=== PATIENT | female | born 1985 | race Caucasian/White ===

== ENCOUNTER 2018-08-12 16:22 | Emergency (ER) | payer OTHER, SELFPAY ==
--- OUTSIDE RECORDS SUMMARY | 2018-08-12 16:24 | XMS REPORT ---
:1985 Author Organization eClinicalWorks Care Team Providers Name Role Phone Power Lewis Provider Role Unavailable Allergies No Known Allergies Problems Problem Type Condition Code Onset Dates Condition Status Problem Obesity affecting in O99.211 Active first trimester Medications Medication Code System Code Instructions Start Date End Date Status Dosage Flagyl [facility] 11832702056 500 MG Orally Aug 04, Active 1 tablet twice a day 2017 Results No Known Results Summary Purpose eClinicalWorks Submission
--- OUTSIDE RECORDS SUMMARY | 2018-08-12 16:25 | XMS REPORT ---
:1985 Author Organization eClinicalWorks Care Team Providers Name Role Phone Power Lewis Provider Role Unavailable Allergies No Known Allergies Problems Problem Type Condition Code Onset Dates Condition Status Problem Obesity affecting in O99.211 Active first trimester Medications No Known Medications Results No Known Results Summary Purpose eClinicalWorks Submission
[2018-08-12 17:04] LABS: Urine Blood NEGATIVE (NEG); Urine Glucose NEGATIVE (NEG); Urine Protein TRACE (NEG); Urine Specific Gravity 1.025 (1.005-1.030); Urine pH 5.5 (5.0-7.0)
[2018-08-12 17:10] LABS: Absolute Lymphocytes (CBC) 1.9 K/uL (0.7-4.9); Absolute Monocytes 0.7 K/uL (0.1-1.3); Absolute Neutrophil 5.9 K/uL (1.8-8.0); Basophils % 0.3 % (0-1.3); Eosinophils % 0.5 % (0-4.4); Hematocrit 38.1 % (36.0-45.0); Lymphocytes % 22.3 % (15.3-44.8); MCH 30.5 pg (27.0-35.0); MCV 89.8 fL (80-100); MPV 9.1 fL (7.6-11.3); Monocytes % 8.2 % (3.3-12.3); RBC Red Blood Cell Count 4.25 M/uL (3.86-4.86)
[2018-08-12 17:36] LABS: BUN Blood Urea Nitrogen 10 mg/dL (7-18); Bicarbonate 24 mmol/L (21-32); Glucose Level 80 mg/dL (74-106); Potassium 3.5 mmol/L (3.5-5.1); Sodium Level 136 mmol/L (136-145)
[2018-08-12 17:48] LABS: HCG, Quantitative 44821 mIU/mL (1-3)
--- NOTE | 2018-08-12 18:33 | RAD REPORT ---
EXAM DESCRIPTION: US - 1St Trimest Single 1St Fetus - 08/12/2018 6:20 pm CLINICAL HISTORY: with abdominal pain COMPARISON: None FINDINGS: Single live intrauterine is in transverse presentation. [place]-rump length 7.5 centimeters. Cardiac activity 160 beats per minute. 3 centimeter isoechoic structure anteriorly could either represent a fibroid or myometrial contractio n. The placenta is anterior Cervix measures 3.3 centimeters Evaluation of the right and left adnexae is unremarkable IMPRESSION: Single live intrauterine with an estimated gestational age 13 weeks 4 days FRANCISCO 02/13/2019 3 centimeter isoechoic structure anteriorly could either represent a fibroid or myometrial contractio n If a survey is desired it should be performed in approximately 4-1/2 weeks
--- NOTE | 2018-08-12 18:40 | ER ---
Nurse's Notes [facility] Name: Fanny Morrison Age: 33 yrs Sex: Female : 1985 Arrival Date: 08/12/2018 Time: 16:27 Bed 19 Private MD: Diagnosis: 13 weeks gestation of ;Lower abdominal pain, unspecified Presentation: 08/12 16:43 Presenting complaint: Patient states: lower abd pain x 1 week that is worse when ss turning onto left side. Patient reports she is 14 weeks . Transition of care: patient was not received from another setting of care. Onset of symptoms was August 05, 2018. Risk Assessment: Do you want to hurt yourself or someone else? Patient reports no desire to harm self or others. Initial Sepsis Screen: Does the patient meet any 2 criteria? No. Patient's initial sepsis screen is negative. Does the patient have a suspected source of infection? No. Patient's initial sepsis screen is negative. Care prior to arrival: None. 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 - Social history:: Smoking status: Patient/guardian denies using tobacco. - Ebola Screening: : Patient denies exposure to infectious person Patient denies travel to an Ebola-affected area in the 21 days before illness onset. Screenin:55 Abuse screen: Denies threats or abuse. Denies injuries from another. Nutritional jl7 screening: No deficits noted. Tuberculosis screening: No symptoms or risk factors identified. Fall Risk IV access (20 points). Total Sanchez Fall Scale indicates No Risk (0-24 pts). Assessment: 16:45 General: Appears in no apparent distress. uncomfortable, Behavior is calm, cooperative, jl7 appropriate for age. Pain: Complains of pain in right lower quadrant Pain does not radiate. Pain currently is 8 out of 10 on a pain scale. Quality of pain is described as pressure, Pain began 1 week ago Is continuous. Neuro: Level of Consciousness is awake, alert, obeys commands, Oriented to person, place, time, situation. Cardiovascular: Patient's skin is warm and dry. Respiratory: Airway is patent Respiratory effort is even, unlabored, Respiratory pattern is regular, symmetrical. GI: Bowel sounds present X 4 quads. Abd is soft X 4 quads Abdomen is tender to palpation in right lower quadrant. : No signs and/or symptoms were reported regarding the genitourinary system. EENT: No signs and/or symptoms were reported regarding the EENT system. Derm: Skin is pink, warm \T\ dry. Musculoskeletal: No signs and/or symptoms reported regarding the musculoskeletal system. 17:45 Reassessment: No changes from previously documented assessment. Patient and/or family jl7 updated on plan of care and expected duration. Pain level reassessed. Patient is alert, oriented x 3, equal unlabored respirations, skin warm/dry/pink. Vital Signs: 16:44 BP 116 / 67; Pulse 83; Resp 16; Temp 98.2(TE); Pulse Ox 100% on R/A; Weight 86.18 kg; ss Height 5 ft. 3 in. (160.02 cm); Pain 8/10; 17:05 BP 103 / 56; Pulse 76; Resp 15 S; Pulse Ox 100% on R/A; jl7 18:09 BP 96 / 66; Pulse 79; Resp 16 S; Pulse Ox 100% on R/A; jl7 16:44 Body Mass Index 33.66 (86.18 kg, 160.02 cm) ss Vitals: 16:55 Heart Tones 160 bpm. jl7 ED Course: 16:27 Patient arrived in ED. mr 16:33 Pedro Luis Swan RN is Primary Nurse. jl7 16:37 Barbara Schmitt FNP-C is PHCP. kb 16:37 Estuardo Mott MD is Attending Physician. kb 16:43 Triage completed. ss 16:44 Arm band placed on right wrist. ss 16:55 Patient has correct armband on for positive identification. Placed in gown. Bed in low jl7 position. Call light in reach. Side rails up X 1. Pulse ox on. NIBP on. Warm blanket given. 17:00 Initial lab(s) drawn, by me, sent to lab. Inserted saline lock: 22 gauge in right jl7 forearm, using aseptic technique. Blood collected. 18:20 1St Trimest Single 1St Fetus In Process Unspecified. EDMS 18:46 No provider procedures requiring assistance completed. IV discontinued, intact, jl7 bleeding controlled, No redness/swelling at site. Pressure dressing applied. Administered Medications: No medications were administered Outcome: 18:40 Discharge ordered by . malou 18:46 Discharged to home ambulatory, with family. jl7 18:46 Condition: stable 18:46 Discharge instructions given to patient, family, Instructed on discharge instructions, follow up and referral plans. Demonstrated understanding of instructions, follow-up care. 18:47 Patient left the ED. jl7 Signatures: Dispatcher [employer] EDNE Barbara Schmitt, EAP CONSULTANTMajoC EAP CONSULTANT-Ailyn Messer mr Milana Forman, RN RN Pedro Luis Swan RN RN jl7 Corrections: (The following items were deleted from the chart) 17:06 17:05 BP 103 / 56; Pulse 16bpm; Resp 15bpm; Spontaneous; Pulse Ox 100% RA; jl7 jl7
--- NOTE | 2018-08-12 18:40 | EDPHYS ---
Physician Documentation [facility] Name: Fanny Morrison Age: 33 yrs Sex: Female : 1985 Arrival Date: 08/12/2018 Time: 16:27 Bed 19 Private MD: ED Physician Estuardo Mott HPI: 08/12 17:00 This 33 yrs old Female presents to ER via Ambulatory with complaints of 14 kb wks , Abdominal Cramping. 17:00 The patient presents to the emergency department with abdominal pain, of the right kb lower quadrant, that started 7 day(s) ago, described as waxing/waning. The estimated gestational age is 14 weeks. course: care: private OB physician, Dr. Lewis, Leakage of Fluid: none appreciated, Ultrasound: the patient had an ultrasound, which was normal, Risk/complications: no obvious risks or complications are appreciated. Associated signs and symptoms: Pertinent positives: abdominal pain, nausea, vomiting, Pertinent negatives: chest pain, diarrhea, dysuria, fever, frequency, ruptured membranes, seizure, shortness of breath, vaginal bleeding, vaginal discharge. The patient has not experienced similar symptoms in the past. The patient has not recently seen a physician. 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 - Social history:: Smoking status: Patient/guardian denies using tobacco. - Ebola Screening: : Patient denies exposure to infectious person Patient denies travel to an Ebola-affected area in the 21 days before illness onset. ROS: 16:59 Constitutional: Negative for fever, chills, and weight loss, Cardiovascular: Negative kb for chest pain, palpitations, and edema, Respiratory: Negative for shortness of breath, cough, wheezing, and pleuritic chest pain, Back: Negative for injury and pain, : Negative for injury, bleeding, discharge, and swelling, MS/Extremity: Negative for injury and deformity, Skin: Negative for injury, rash, and discoloration, Neuro: Negative for headache, weakness, numbness, tingling, and seizure. 16:59 Abdomen/GI: Positive for abdominal pain, Negative for nausea, vomiting, and diarrhea, constipation, abdominal cramps, abdominal distension, anorexia. Exam: 16:59 Constitutional: This is a well developed, well nourished patient who is awake, alert, kb and in no acute distress. Head/Face: Normocephalic, atraumatic. Chest/axilla: Normal chest wall appearance and motion. Nontender with no deformity. No lesions are appreciated. Cardiovascular: Regular rate and rhythm with a normal S1 and S2. No gallops, murmurs, or rubs. Normal PMI, no JVD. No pulse deficits. Respiratory: Lungs have equal breath sounds bilaterally, clear to auscultation and percussion. No rales, rhonchi or wheezes noted. No increased work of breathing, no retractions or nasal flaring. Back: No spinal tenderness. No costovertebral tenderness. Full range of motion. Skin: Warm, dry with normal turgor. Normal color with no rashes, no lesions, and no evidence of cellulitis. MS/ Extremity: Pulses equal, no cyanosis. Neurovascular intact. Full, normal range of motion. Neuro: Awake and alert, GCS 15, oriented to person, place, time, and situation. Cranial nerves II-XII grossly intact. Motor strength 5/5 in all extremities. Sensory grossly intact. Cerebellar exam normal. Normal gait. 16:59 Abdomen/GI: Inspection: abdomen appears normal, Bowel sounds: normal, in all quadrants, Palpation: soft, in all quadrants, moderate abdominal tenderness, in the right lower quadrant, Indicators: McBurney's point is tender, Rovsing's sign is positive. Vital Signs: 16:44 BP 116 / 67; Pulse 83; Resp 16; Temp 98.2(TE); Pulse Ox 100% on R/A; Weight 86.18 kg; ss Height 5 ft. 3 in. (160.02 cm); Pain 8/10; 17:05 BP 103 / 56; Pulse 76; Resp 15 S; Pulse Ox 100% on R/A; jl7 18:09 BP 96 / 66; Pulse 79; Resp 16 S; Pulse Ox 100% on R/A; jl7 16:44 Body Mass Index 33.66 (86.18 kg, 160.02 cm) MDM: 16:37 Patient medically screened. [facility] 16:59 Data reviewed: vital signs, nurses notes. Data interpreted: Pulse oximetry: on room air kb is 100 %. Interpretation: normal. 18:39 Counseling: I had a detailed discussion with the patient and/or guardian regarding: the kb historical points, exam findings, and any diagnostic results supporting the discharge/admit diagnosis, lab results, radiology results, the need for outpatient follow up, an OB/Gyne specialist, to return to the emergency department if symptoms worsen or persist or if there are any questions or concerns that arise at home. 18:40 ED course: Normal WBC, no fever, pain ongoing for a week. Appendicitis unlikely kb diagnosis. Pt educated to return for fever, worsening symptoms or other concerns.. 10 16:38 Order name: Quantitative Hcg; Complete Time: 17:48 kb 08/12 16:38 Order name: Abo/rh Typing; Complete Time: 17:36 kb 08/12 16:38 Order name: Basic Metabolic Panel; Complete Time: 17:48 kb 08/12 16:38 Order name: CBC with Diff; Complete Time: 17:21 kb 08/12 16:58 Order name: Urine Dipstick--Ancillary (enter results); Complete Time: 17:07 bd 08/12 16:58 Order name: Urine --Ancillary (enter results); Complete Time: 17:07 bd 08/12 16:38 Order name: Urine Test (obtain specimen); Complete Time: 17:06 kb 08/12 16:38 Order name: IV Saline Lock; Complete Time: 17:06 kb 08/12 16:38 Order name: Labs collected and sent; Complete Time: 17:06 kb 08/12 16:38 Order name: NPO; Complete Time: 17:06 kb 08/12 16:38 Order name: Urine Dipstick-Ancillary (obtain specimen); Complete Time: 17:06 kb 08/12 17:58 Order name: ABO/RH no charge; Complete Time: 18:04 EDMS 08/12 18:19 Order name: 1St Trimest Single 1St Fetus; Complete Time: 18:34 EDMS Administered Medications: No medications were administered Disposition: 08/13 07:12 Co-signature as Attending Physician, Estuardo Mott MD I agree with the assessment and dayron plan of care. Disposition: 08/12/18 18:40 Discharged to Home. Impression: 13 weeks gestation of , Lower abdominal pain, unspecified. - Condition is Stable. - Discharge Instructions: Second Trimester of , [id number]. - Medication Reconciliation Form, Thank You Letter, Antibiotic Education, Prescription Opioid Use form. - Follow up: Emergency Department; When: As needed; Reason: Worsening of condition. Follow up: Private Physician; When: 2 - 3 days; Reason: Recheck today's complaints, Continuance of care, Re-evaluation by your physician. Signatures: Dispatcher [employer] [facility] Barbara Schmitt, RETAIL SERVICE REPRESENTATIVE-C RETAIL SERVICE REPRESENTATIVE-Estuardo Garcia MD MD cha Smirch, Shelby, RN RN ss Pedro Luis Swan RN RN jl7 Corrections: (The following items were deleted from the chart) 08/12 18:19 17:49 Transvaginal Ob+US.RAD.BRZ ordered. [facility] 18:47 18:40 08/12/2018 18:40 Discharged to Home. Impression: 13 weeks gestation of ; jl7 Lower abdominal pain, unspecified. Condition is Stable. Forms are Medication Reconciliation Form, Thank You Letter, Antibiotic Education, Prescription Opioid Use. Follow up: Emergency Department; When: As needed; Reason: Worsening of condition. Follow up: Private Physician; When: 2 - 3 days; Reason: Recheck today's complaints, Continuance of care, Re-evaluation by your physician. kb
== END 2018-08-12 18:47 | disposition home or self-care (01) ==
LOC: ER 16:22
DX: O26.891 Other specified pregnancy related conditions, first trimester (principal); Z3A.13 13 weeks gestation of pregnancy
CPT/HCPCS: 36415; 76801; 80048; 81003; 81025; 84702; 85025; 86900; 86901; 99284

== ENCOUNTER 2019-02-08 11:30 | Inpatient (IN) | payer OTHER ==
[2019-02-08 11:09] LABS: Urine Appearance CLOUDY; Urine Bilirubin NEGATIVE (NEG); Urine Blood NEGATIVE (NEG); Urine Color YELLOW; Urine Glucose NEGATIVE (NEG); Urine Protein TRACE (NEG); Urine Specific Gravity >=1.030 (1.005-1.030); Urine Urobilinogen 0.2 mg/dL (0.2-1.0)
[2019-02-08 11:12] LABS: RPR Titer ND
[2019-02-08 11:23] LABS: Absolute Lymphocytes (CBC) 2.2 K/uL (0.7-4.9); Absolute Monocytes 0.6 K/uL (0.1-1.3); Absolute Neutrophil 5.7 K/uL (1.8-8.0); Basophils % 0.1 % (0-1.3); Eosinophils % 0.4 % (0-4.4); Hematocrit 33.4 % (36.0-45.0); Lymphocytes % 25.9 % (15.3-44.8); MPV 9.3 fL (7.6-11.3); Monocytes % 7.1 % (3.3-12.3)
[2019-02-08 11:23] LABS: Urine Bacteria >50 /HPF (<20); Urine Culture Reflex Order NOT NEEDED; Urine Mucus HEAVY /HPF (NONE SEEN)
[2019-02-08 11:35] LABS: BUN Blood Urea Nitrogen 12 mg/dL (7-18); Bicarbonate 22 mmol/L (21-32); Glucose Level 108 mg/dL (74-106); Potassium 3.6 mmol/L (3.5-5.1); Sodium Level 138 mmol/L (136-145)
[2019-02-08 21:22] LABS: RPR (Rapid Plasma Reagin) NON-REACT (NON-REACT)
--- OUTSIDE RECORDS SUMMARY | 2019-02-09 09:51 | XMS REPORT ---
:1985 Author Organization eClinicalWorks Care Team Providers Name Role Phone Power Lewis Provider Role Unavailable Allergies No Known Allergies Problems Problem Type Condition Code Onset Dates Condition Status Problem Obesity affecting in O99.211 Active first trimester Medications Medication Code System Code Instructions Start Date End Date Status Dosage Flagyl [facility] 63236328144 500 MG Orally Aug 04, Active 1 tablet twice a day 2017 Results No Known Results Summary Purpose eClinicalWorks Submission
--- OUTSIDE RECORDS SUMMARY | 2019-02-09 09:52 | XMS REPORT ---
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
--- OUTSIDE RECORDS SUMMARY | 2019-02-09 09:52 | XMS REPORT ---
:1985 Author Organization eClinicalWorks Care Team Providers Name Role Phone Power Lewis Provider Role Unavailable Allergies No Known Allergies Problems Problem Type Condition Code Onset Dates Condition Status Assessment Obesity affecting in O99.212 Active second trimester Problem Supervision of high risk O09.92 Active in second trimester Problem Obesity affecting in O99.212 Active second trimester Problem Needs flu shot Z23 Active Assessment Supervision of high risk O09.92 Active in second trimester Problem Uterine scar from previous O34.219 Active delivery Problem Obesity affecting in O99.211 Active first trimester Medications Medication Code System Code Instructions Start End Date Status Dosage Date Macrobid [facility] 93542944023 100 MG Orally Active 1 capsule every 12 hrs with food Results No Known Results Summary Purpose eClinicalWorks Submission
--- OUTSIDE RECORDS SUMMARY | 2019-02-09 09:52 | XMS REPORT ---
:1985 Author Organization eClinicalWorks Care Team Providers Name Role Phone Power Lewis Provider Role Unavailable Allergies No Known Allergies Problems Problem Type Condition Code Onset Dates Condition Status Problem Uterine scar from previous O34.219 Active delivery Problem Needs flu shot Z23 Active Problem Supervision of high risk O09.93 Active in third trimester Problem Obesity affecting in O99.211 Active first trimester Problem Supervision of high risk O09.92 Active in second trimester Problem Obesity affecting in O99.212 Active second trimester Medications No Known Medications Results No Known Results Summary Purpose eClinicalWorks Submission
--- OUTSIDE RECORDS SUMMARY | 2019-02-09 09:52 | XMS REPORT ---
[...] Start End Date Status Dosage System Date Breast Pump [facility] 60787191532 - Jan 06, Active as directed 2018 Macrobid [facility] 68775508140 100 MG Orally Active 1 capsule every 12 hrs with food Results No Known Results Summary Purpose eClinicalWorks Submission
--- OUTSIDE RECORDS SUMMARY | 2019-02-09 09:52 | XMS REPORT ---
:1985 Author Organization eClinicalWorks Care Team Providers Name Role Phone Power Lewis Provider Role Unavailable Allergies No Known Allergies Problems Problem Type Condition Code Onset Dates Condition Status Assessment Supervision of high risk O09.92 Active in second trimester Assessment Obesity affecting in O99.212 Active second trimester Problem Supervision of high risk O09.92 Active in second trimester Problem Obesity affecting in O99.212 Active second trimester Problem Needs flu shot Z23 Active Assessment Urinary tract infection in mother O23.43 Active during third trimester of Problem Uterine scar from previous O34.219 Active delivery Problem Obesity affecting in O99.211 Active first trimester Medications Medication Code Code Instructions Start End Status Dosage System Date Date Macrobid [facility] 76825368347 100 MG Orally Active 1 capsule every 12 hrs with food Flagyl [facility] 22700459193 500 MG Orally Sept 25, Active 1 tablet twice a day 2017 Progesterone [facility] 88551345050 50 MG/ML Active as directed Intramuscular Results Name Result Date Reference Range Unit Abnormality Flag CULTURE, URINE, ROUTINE ----CULTURE, URINE, ROUTINE SEE NOTE [id number] Summary Purpose eClinicalWorks Submission
--- OUTSIDE RECORDS SUMMARY | 2019-02-09 09:52 | XMS REPORT ---
[...] Start End Date Status Dosage Date Macrobid [facility] 92655636173 100 MG Orally Active 1 capsule every 12 hrs with food Results No Known Results Summary Purpose eClinicalWorks Submission
--- OUTSIDE RECORDS SUMMARY | 2019-02-09 09:52 | XMS REPORT ---
:1985 Author Organization eClinicalWorks Care Team Providers Name Role Phone Power Lewis Provider Role Unavailable Allergies No Known Allergies Problems Problem Type Condition Code Onset Dates Condition Status Assessment Supervision of high risk O09.93 Active in third trimester Problem Uterine scar from previous O34.219 Active delivery Problem Needs flu shot Z23 Active Problem Supervision of high risk O09.93 Active in third trimester Problem Obesity affecting in O99.211 Active first trimester Problem Supervision of high risk O09.92 Active in second trimester Problem Obesity affecting in O99.212 Active second trimester Medications Medication Code Code Instructions Start End Date Status Dosage System Date Macrobid [facility] 33901747655 100 MG Orally Active 1 capsule every 12 hrs with food Breast Pump [facility] 82444184531 - Jan 06, Active as directed 2019 Results No Known Results Summary Purpose eClinicalWorks Submission
--- OUTSIDE RECORDS SUMMARY | 2019-02-09 09:52 | XMS REPORT ---
[...] End Status Dosage System Date Date Macrobid [facility] 24886090841 100 MG Orally Oct 17, Active 1 capsule every 12 hrs 2017 with food Progesterone [facility] 08895545970 50 MG/ML Active as directed Intramuscular Flagyl [facility] 81753514466 500 MG Orally Jul 25, Active 1 tablet twice a day 2018 Results Name Result Date Reference Range Unit Abnormality Flag CBC (INCLUDES DIFF/PLT) ----ABSOLUTE BASOPHILS 19 [id number] 0-200 cells/uL N ----ABSOLUTE EOSINOPHILS 47 [id number] 15-500 cells/uL N ----LYMPHOCYTES 20.2 61126821 % N ----NEUTROPHILS 73 62399342 % N ----PLATELET COUNT 254 [id number] 140-400 Thousand/uL N ----EOSINOPHILS 0.5 45336130 % N ----RDW 13.1 [id number] 11.0-15.0 % N ----MONOCYTES 6.1 75936354 % N ----MCHC 33.5 08421390 32.0-36.0 g/dL N ----MCH 30.0 [id number] 27.0-33.0 pg N ----MCV 89.4 59430273 80.0-100.0 fL N ----ABSOLUTE NEUTROPHILS 6789 09465116 2580-4642 cells/uL N ----MPV 10.9 53694663 7.5-12.5 fL N ----ABSOLUTE MONOCYTES 567 [id number] 200-950 cells/uL N ----ABSOLUTE LYMPHOCYTES 1879 45593636 850-3900 cells/uL N ----BASOPHILS 0.2 74541264 % N ----WHITE BLOOD CELL 9.3 20181106 3.8-10.8 Thousand/uL N COUNT ----RED BLOOD CELL COUNT 3.67 63047273 3.80-5.10 Million/uL L ----HEMOGLOBIN 11.0 48588097 11.7-15.5 g/dL L ----HEMATOCRIT 32.8 [id number] 35.0-45.0 % L GLUCOSE, GESTATIONAL SCREEN (50G)-130 CUTOFF ----GLUCOSE, GESTATIONAL 78 [id number] <135 mg/dL N SCREEN (50G)-135 CUTOFF Summary Purpose eClinicalWorks Submission
--- OUTSIDE RECORDS SUMMARY | 2019-02-09 09:52 | XMS REPORT ---
:1985 Author Organization eClinicalWorks Care Team Providers Name Role Phone Power Lewis Provider Role Unavailable Allergies No Known Allergies Problems Problem Type Condition Code Onset Dates Condition Status Problem Supervision of high risk O09.92 Active in second trimester Problem Obesity affecting in O99.212 Active second trimester Problem Needs flu shot Z23 Active Problem Uterine scar from previous O34.219 Active delivery Problem Obesity affecting in O99.211 Active first trimester Medications No Known Medications Results No Known Results Summary Purpose eClinicalWorks Submission
--- OUTSIDE RECORDS SUMMARY | 2019-02-09 09:52 | XMS REPORT ---
:1985 Author Organization eClinicalWorks Care Team Providers Name Role Phone Power Lewis Provider Role Unavailable Allergies, Adverse Reactions, Alerts Substance Reaction Event Type N.K.D.A. Info Not Available Non Drug Allergy Problems Problem Type Condition Code Onset Dates Condition Status Assessment Needs flu shot Z23 Active Assessment Obesity affecting in O99.212 Active second trimester Assessment Uterine scar from previous O34.219 Active delivery Problem Supervision of high risk O09.92 Active in second trimester Problem Obesity affecting in O99.212 Active second trimester Problem Needs flu shot Z23 Active Assessment Supervision of high risk O09.92 Active in second trimester Problem Uterine scar from previous O34.219 Active delivery Problem Obesity affecting in O99.211 Active first trimester Medications Medication Code Code Instructions Start End Status Dosage System Date Date Flagyl [facility] 79284228864 500 MG Orally Sept 25, Active 1 tablet twice a day 2018 Progesterone [facility] 99929263007 50 MG/ML Active as directed Intramuscular Results No Known Results Immunizations Vaccine Administration Date Afluria Aug 24, 2018 Summary Purpose eClinicalWorks Submission
--- OUTSIDE RECORDS SUMMARY | 2019-02-09 09:52 | XMS REPORT ---
:1985 Author Organization e[employer] Care Team Providers Name Role Phone Power Lewis Provider Role Unavailable Allergies No Known Allergies Problems Problem Type Condition Code Onset Dates Condition Status Problem Supervision of high risk O09.92 Active in second trimester Problem Obesity affecting in O99.212 Active second trimester Problem Needs flu shot Z23 Active Assessment Obesity affecting in O99.212 Active second trimester Problem Uterine scar from previous O34.219 Active delivery Problem Obesity affecting in O99.211 Active first trimester Medications No Known Medications Results No Known Results Summary Purpose eClinicalWorks Submission
--- OUTSIDE RECORDS SUMMARY | 2019-02-09 09:52 | XMS REPORT ---
[...] End Date Status Dosage System Date Macrobid [facility] [id number] 100 MG Orally Active 1 capsule every 12 hrs with food Breast Pump [facility] 71442915260 - Jan 06, Active as directed 2018 Results No Known Results Summary Purpose eClinicalWorks Submission
[2019-02-09 10:31] VITALS: BMI 40.4
[2019-02-09] MEDS ORDERED: Ringers Lactate 1,000 ML IV PRN (10:32)
[2019-02-09] MEDS ORDERED: METHYLERGONOVINE 0.2MG/ML AMP IM ONE (10:34)
[2019-02-09] MEDS ORDERED: NA CIT/CITRIC AC 30 ML ORAL UDC PO ONE (10:35)
[2019-02-09] MEDS ORDERED: Ringers Lactate 3,000 ML IV ONE (10:55)
[2019-02-09] MEDS ORDERED: CEFAZOLIN/SWI 2gm 2 GM/20 ML SYR IV SCH (11:00)
[2019-02-09] MEDS ORDERED: MORPHINE SULFATE/PF 1 MG/ML (10 ML AMP) ONE (11:00)
[2019-02-09] MEDS ORDERED: METOCLOPRAMIDE 10 MG/2mL INJ IV SCH (11:00)
[2019-02-09] MEDS ORDERED: EPHEDRINE SULF 50 MG/ML VIAL ONE (11:00)
[2019-02-09] MEDS ORDERED: Ringers Lactate 1,000 ML IV SCH (11:00)
[2019-02-09] MEDS ORDERED: OXYTOCIN 10 UNIT/ML ML IV ONE (11:01)
[2019-02-09] MEDS ORDERED: NS 0.9% VIAL 10 ML ONE (11:01)
[2019-02-09] MEDS ORDERED: FAMOTIDINE 20 MG/2 ML VIAL IV ONE (11:06)
[2019-02-09] MEDS ORDERED: ONDANSETRON 4 MG/2 ML VIAL ONE ×2 (11:58→12:02)
[2019-02-09] MEDS ORDERED: GLYCOPYRROLATE 0.2 MG/ML SYR ONE (12:16)
[2019-02-09] MEDS ORDERED: METHYLERGONOVINE 0.2 MG TAB PO PRN (12:32)
[2019-02-09] MEDS ORDERED: ONDANSETRON 4 MG (ODT) TAB PO PRN (12:32)
[2019-02-09] MEDS ORDERED: KETOROLAC 30 MG/ML INJ IV PRN (12:32)
[2019-02-09] MEDS ORDERED: BISACODYL 10 MG RECTAL SUPP RECT PRN (12:32)
[2019-02-09] MEDS ORDERED: ACETAMINOPHEN 500 MG TAB PO PRN (12:32)
[2019-02-09] MEDS ORDERED: DOCUSATE NA/SENNA CONC 1 TAB PO PRN (12:32)
[2019-02-09] MEDS ORDERED: Oxycodone HCl/Acetaminophen 1 TAB TAB PO PRN (12:32)
[2019-02-09] MEDS ORDERED: IBUPROFEN 400 MG TAB PO PRN (12:32)
--- NOTE | 2019-02-09 12:36 | P.OP ---
Vaccine Manager: Bud Miles Preoperative diagnosis: 39+ weeks gestation, prior section, scheduled for repeat Postoperative diagnosis: same Primary procedure: Primary low transverse section Secondary procedure: same Anesthesia: spinal Estimated blood loss: 800cc Specimen: cord blood, placenta Findings: female infant, cephalic presentation, APGARS 9/9, weight 7lb 5 ounces Complications: None Drain(s): Urinary catheter Transferred to: Recovery Room Condition: Good
[2019-02-09] MEDS ORDERED: PROMETHAZINE 25 MG/ML VIAL IV PRN (12:45)
[2019-02-09] MEDS ORDERED: ONDANSETRON 4 MG/2 ML VIAL IV PRN (12:46)
[2019-02-09] MEDS ORDERED: DIPHENHYDRAMINE 25 MG TAB/CAP ONE (15:21)
[2019-02-09] MEDS: DIPHENHYDRAMINE 25 MG TAB/CAP PO PRN (15:25)
[2019-02-09] MEDS: Ringers Lactate 1,000 ML IV SCH (16:51)
[2019-02-10] MEDS: DIPHENHYDRAMINE 25 MG TAB/CAP PO PRN (00:25)
[2019-02-10] MEDS: Ringers Lactate 1,000 ML IV SCH (00:40)
[2019-02-10 05:06] LABS: Absolute Lymphocytes (CBC) 1.7 K/uL (0.7-4.9); Absolute Monocytes 0.5 K/uL (0.1-1.3); Absolute Neutrophil 7.8 K/uL (1.8-8.0); Basophils % 0.1 % (0-1.3); Eosinophils % 0.4 % (0-4.4); Hematocrit 28.9 % (36.0-45.0); Lymphocytes % 16.5 % (15.3-44.8); MPV 9.3 fL (7.6-11.3); Monocytes % 5.2 % (3.3-12.3); RBC Red Blood Cell Count 3.32 M/uL (3.86-4.86)
[2019-02-10] MEDS: Oxycodone HCl/Acetaminophen 1 TAB TAB PO PRN ×3 (09:05→19:20)
[2019-02-10] MEDS ORDERED: FAMOTIDINE 20 MG/2 ML VIAL IV ONE (10:36)
[2019-02-11] MEDS: Oxycodone HCl/Acetaminophen 1 TAB TAB PO PRN ×2 (04:00→08:23)
[2019-02-11 04:15] VITALS: TEMP 99
[2019-02-11 08:33] VITALS: BP 103/54
--- NOTE | 2019-02-11 09:59 | P.PN ---
Date of Service: 02/10/19 The patient is postop day 1 from a repeat section. She is doing well. She is tolerating diet. Her pain is well controlled. She is afebrile. She has no complaints today she is bonding well with the baby and is breast-feeding. Vital sign stable General: Resting in bed no distress Head and neck: Normocephalic atraumatic, supple Respiratory: Symmetric nonlabored breathing Abdomen: Soft, mildly distended, mildly tender. Incision clean dry and intact Bilateral lower extremities: No clubbing cyanosis or edema. Assessment and plan patient is postop day 1 after repeat section she is doing well. Pain is well controlled. Discontinue IV discontinue Haji catheter. Encourage patient to ambulate. Possible discharge home tomorrow.
--- NOTE | 2019-02-11 11:41 | P.DS ---
Admission Date: 02/09/19 Discharge Date: 02/11/19 Disposition: ROUTINE DISCHARGE Discharge Condition: GOOD Vital Signs/Physical Exam: Temp Pulse Resp BP Pulse Ox 99 F 87 16 103/54 L 96 02/11/19 08:00 02/11/19 08:00 02/11/19 08:00 02/11/19 08:00 02/09/19 16:00 General: Alert, In no apparent distress HEENT: Atraumatic Neck: Supple Respiratory: Normal air movement Cardiovascular: No edema, Normal pulses Gastrointestinal: Other (Soft nontender nondistended; incision is clean dry and intact) Musculoskeletal: No clubbing, No swelling Integumentary: No rashes Neurological: Normal gait, Normal speech Laboratory Data at Discharge: WBC 10.0 K/uL (4.3-10.9) D 02/10/19 04:23 Hgb 9.6 g/dL (12.0-15.0) L 02/10/19 04:23 Hct 28.9 % (36.0-45.0) L 02/10/19 04:23 Plt Count 263 K/uL (152-406) 02/10/19 04:23 Sodium 138 mmol/L (136-145) 02/08/19 10:49 Potassium 3.6 mmol/L (3.5-5.1) 02/08/19 10:49 BUN 12 mg/dL (7-18) 02/08/19 10:49 Creatinine 0.59 mg/dL (0.55-1.3) 02/08/19 10:49 Glucose 108 mg/dL (74-106) H 02/08/19 10:49 Home Medications: Codeine/APAP [Tylenol W/Codeine #3 tab] 1 tab PO Q6HP PRN #24 tab 02/11/19 New Medications: Codeine/APAP [Tylenol W/Codeine #3 tab] 1 tab PO Q6HP PRN #24 tab PRN Reason: Pain Diet: Regular Activity: No lifting more than 10 lbs Followup: Power Lewis DO [ACTIVE - CAN ADMIT] - 1 Week (Follow up in Dr. Lewis's office in 1 week after delivery.)
[2019-02-12 03:33] LABS: HBsAG Nonreactive (Nonreactive)
== END 2019-02-11 11:55 | disposition home or self-care (01) | DRG 788 ==
LOC: 2ND-WC 02-09 09:34
PROVIDERS: ADMIT Student in an Organized Health Care Education/Training Program; ATTEND Student in an Organized Health Care Education/Training Program
PROC: 10D00Z1 Extraction of Products of Conception, Low, Open Approach (ICD-10-PCS; principal; 2019-02-09 11:30)
DX: O34.211 Maternal care for low transverse scar from previous cesarean delivery (principal); Z3A.39 39 weeks gestation of pregnancy; Z37.0 Single live birth
CPT/HCPCS: 36415; 80048; 81001; 85025; 86592; 86850; 86900; 86901; 87340; 88307; J0690; J2210; J2405; J2590; J2765